=== PATIENT | female | born 1975 | race Caucasian/White ===

== ENCOUNTER 2018-12-07 16:57 | Emergency (ER) | payer BC ==
[~2018-12-07] VITALS: Ht 152.4 cm; Wt 48.0 kg
--- NOTE | 2018-12-07 18:45 | NUR ---
PT TO ROOM FROM LOBBY.
[2018-12-07 19:28] LABS: HCT (SEDRATE) 41.2 % (34.6-47.8)
[2018-12-07] MEDS ORDERED: IBUPROFEN 600 MG TABLET ONE (19:59)
[2018-12-07] MEDS ORDERED: ACETAMINOPHEN 500 MG TABLET ONE (19:59)
[2018-12-07] MEDS ORDERED: IBUPROFEN 600 MG TABLET PO ONE (20:00)
[2018-12-07] MEDS ORDERED: GABAPENTIN 300 MG CAPSULE PO ONE (20:00)
[2018-12-07] MEDS ORDERED: GABAPENTIN 300 MG CAPSULE ONE (20:00)
[2018-12-07] MEDS ORDERED: ACETAMINOPHEN 500 MG TABLET PO ONE (20:00)
[2018-12-07 20:11] VITALS: BP 111/79
--- NOTE | 2018-12-07 20:37 | NUR ---
PT MEDICATED PER ORDER. VSS AT THIS TIME. MOTHER AT BEDSIDE.
== END 2018-12-07 21:26 | disposition home or self-care (01) ==
LOC: ED 21:00
DX: R20.9 Unspecified disturbances of skin sensation (principal); R20.0 Anesthesia of skin; R20.2 Paresthesia of skin; E03.9 Hypothyroidism, unspecified; Z90.710 Acquired absence of both cervix and uterus; Z90.89 Acquired absence of other organs; Z98.890 Other specified postprocedural states
CPT/HCPCS: 36415; 82607; 84439; 84443; 85651; 86140; 86592; 86618; 87806; 99284; G0475